=== PATIENT | female | born 1985 | race American Indian/Alaskan Native ===

== ENCOUNTER 2017-02-01 07:32 | Observation (INO) | payer SELFPAY ==
[2017-02-01 07:32] VITALS: BMI 21.5
[2017-02-01] MEDS ORDERED: Sodium Chloride 0.9% 1,000 ML IV ONE ×2 (07:47→13:15)
[2017-02-01] MEDS ORDERED: HYDROmorphone 1 mg Tab PO STA ×2 (07:48→09:21)
--- NOTE | 2017-02-01 07:51 | C.PDOC ---
History Of Present Illness 31 y/o female with hx svt and perry cell disease c/o multiple episodes of svt today; pt sts she has been able to break them through valsalva maneuvers or blowing into syringe or straw, but they keep returning approx every 15 minutes for last few hours. when in svt, pt has cp and feel sob. pt sts she is in painful sc crisis, which started yesterday, and crises often exacerbated by cold weather, with pain to back, lower joints and ribs, typical of her usual painful crises. denies fever and chills. no cough. cp she feels does not feel like acute chest syndrome. Time Seen by Provider: 02/01/17 07:35 Chief Complaint (Nursing): Palpitations Past Medical History Reviewed: Historical Data, Nursing Documentation, Vital Signs Vital Signs: Last Vital Signs Temp Pulse 94 H 02/01/17 10:17 Resp 18 02/01/17 10:17 BP 179/104 H 02/01/17 09:57 Pulse Ox 99 02/01/17 10:17 - Medical History PMH: Cardia Arrhythmia, Sickle Cell Disease (SC ) Other PMH: splenic infarct Surgical History: Cholecystectomy Family History: States: Unknown Family Hx - Social History Hx Tobacco Use: No Hx Alcohol Use: No Hx Substance Use: No - Immunization History Hx Tetanus Toxoid Vaccination: Yes Hx Influenza Vaccination: Yes Hx Pneumococcal Vaccination: Yes Review Of Systems Constitutional: Negative for: Fever, Chills Cardiovascular: Positive for: Chest Pain, Palpitations Respiratory: Positive for: Shortness of Breath, Pleuritic Pain. Negative for: Cough Gastrointestinal: Negative for: Nausea, Vomiting, Abdominal Pain Genitourinary: Negative for: Dysuria, Frequency Skin: Negative for: Rash Neurological: Negative for: Weakness, Numbness Physical Exam - Physical Exam Appears: Non-toxic, In Acute Distress Skin: Normal Color, Warm, Dry Head: Atraumatic, Normacephalic Neck: Normal ROM Chest: Symmetrical, No Deformity, No Tenderness Cardiovascular: Rhythm Regular, Other (tachycardic, ranges from low 100s to 190 , and back to low hundred's ) Respiratory: Normal Breath Sounds, No Rales, No Rhonchi, No Stridor Gastrointestinal/Abdominal: Normal Exam, Soft, No Tenderness Neurological/Psych: Oriented x3, Normal Speech, Normal Motor, Normal Sensation ED Course And Treatment - Laboratory Results Result Diagrams: 02/01/17 08:19 02/01/17 08:19 Urine POC: Negative ECG: Viewed By Me ECG Rhythm: Sinus Tachycardia ECG Interpretation: Abnormal Interpretation Of ECG: sinus tachycardia at 112, with non specific t wave abnl O2 Sat by Pulse Oximetry: 98 Pulse Ox Interpretation: Normal Progress Note: pt still having crisis pain, decreased to 8/10 from 10/10. seond dose medication ordered. Dr Bi bright. 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 [id number] Silva, will admit pt to his service. Disposition Discussed With : Tapan Silva Doctor Will See Patient In The: Hospital - Disposition Disposition: HOSPITALIZED Disposition Time: 10:42 Condition: SERIOUS - Clinical Impression Clinical Impression: Sickle cell crisis, SVT (supraventricular tachycardia)
[2017-02-01] MEDS ORDERED: Sodium Chloride 0.9% 1,000 ML ONE (07:58)
[2017-02-01 08:26] LABS: BASO # 0.1 K/uL (0.0-0.2); BASO % 0.5 % (0.0-2.0); EOS # 0.3 K/uL (0.0-0.7); EOS % 2.2 % (0.0-4.0); HEMATOCRIT 31.2 % (34.0-47.0); LYMPH # 2.1 K/uL (1.0-4.3); LYMPH % 16.4 % (20.0-40.0); MEAN CELL VOLUME 75.2 fL (81.0-99.0); MEAN CORPUSCULAR HEMOGLOBIN 23.1 pg (27.0-31.0); MEAN CORPUSCULAR HGB CONC 30.7 g/dL (33.0-37.0); MEAN PLATELET VOLUME 8.8 fL (7.2-11.7); MONO % 7.6 % (0.0-10.0); RED CELL DISTRIBUTION WIDTH 19.1 % (11.5-14.5); WHITE BLOOD COUNT 12.7 K/uL (4.8-10.8)
[2017-02-01 08:33] LABS: CHLORIDE 99 mmol/L (98-107); SODIUM 139 mmol/L (132-148)
[2017-02-01 08:34] LABS: POTASSIUM 3.6 mmol/L (3.6-5.2)
[2017-02-01 08:35] LABS: GFR AFRICAN-AMERICAN > 60
[2017-02-01 08:36] LABS: ALB/GLOB RATIO 0.9 (1.0-2.1); ALKALINE PHOSPHATASE 109 U/L (38-126); ALT/SGPT 17 U/L (9-52); AST/SGOT 34 U/L (14-36); BILIRUBIN,TOTAL 0.4 mg/dL (0.2-1.3); BLOOD UREA NITROGEN 15 mg/dL (7-17); CARBON DIOXIDE 24 mmol/L (22-30); GLUCOSE,RANDOM 86 mg/dL (65-105); TOTAL PROTEIN 8.5 g/dL (6.3-8.3)
[2017-02-01 08:46] LABS: RBC URINE 3 /hpf (0-3); URINE BACTERIA MOD (<OCC); URINE BILIRUBIN NEGATIVE (NEGATIVE); URINE BLOOD NEGATIVE (NEGATIVE); URINE COLOR Amber (YELLOW); URINE GLUCOSE (UA) NORMAL (Normal); URINE KETONE TRACE mg/dL (NEGATIVE); URINE LEUKOCYTE ESTERASE NEG Leu/uL (Negative); URINE PROTEIN 2+ mg/dL (NEGATIVE); WBC URINE 4 /hpf (0-5)
--- NOTE | 2017-02-01 09:21 | RAD ---
HISTORY: cp COMPARISON: 12/05/2016. FINDINGS: LUNGS: No focal airspace opacity. PLEURA: No significant pleural effusion identified, no pneumothorax apparent. CARDIOVASCULAR: Normal. OSSEOUS STRUCTURES: No significant abnormalities. VISUALIZED UPPER ABDOMEN: Normal. OTHER FINDINGS: None. IMPRESSION: No focal airspace opacity. No significant interval change.
[2017-02-01] MEDS ORDERED: DiphenhydrAMINE 50 mg/ml Inj IVP PRN (12:01)
[2017-02-01 13:30] VITALS: PULSE 77
[2017-02-01 13:33] VITALS: BP 166/97; RESP 16; TEMP 97.6; O2SAT 97
--- NOTE | 2017-02-01 18:04 | CP.PCM.HP ---
<Rosario Severino - Last Filed: 02/01/17 17:58> History of Present Illness - History of Present Illness History of Present Illness: CC - "I have sickle cell and I have pain all over especially in my ribs" HPI - 31 y/o female with hx svt and perry cell disease c/o multiple episodes of svt today; pt sts she has been able to break them through valsalva maneuvers or blowing into syringe or straw, but they keep returning approx every 15 minutes for last few hours. when in svt, pt has cp and feel sob. pt sts she is in painful sc crisis, which started yesterday, and crises often exacerbated by cold weather, with pain to back, lower joints and ribs, typical of her usual painful crises. denies fever and chills. no cough. cp she feels does not feel like acute chest syndrome. 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 lives alone. Famhx: 3 brothers with sickle cell trait 3 brothers with sickle cell disease, mom and dad have trait PSH: right ear surgery, cholecystectomy, portacath and s/p removal Allergies: Sulfa PMD: Dr. Little cardio: Dr. Mccracken (per past records Dr. Law), also stated Dr. Landon wolf not remeber first name Present on Admission - Present on Admission Any Indicators Present on Admission: Yes History of DVT/PE: Yes Review of Systems - Constitutional Constitutional: absent: Chills, Fever - EENT Eyes: absent: Blurred Vision, Change in Vision Ears: absent: Dizziness - Cardiovascular Cardiovascular: Palpitations. absent: Chest Pain, Chest Pain at Rest, Diaphoresis, Leg Edema, Pedal Edema, Syncope - Respiratory Respiratory: absent: Cough, Dyspnea, Dyspnea on Exertion - Gastrointestinal Gastrointestinal: absent: Abdominal Pain, Constipation, Diarrhea, Nausea, Vomiting - Genitourinary Genitourinary: absent: Change in Urinary Stream, Difficulty Urinating - Musculoskeletal Musculoskeletal: Back Pain. absent: Numbness, Tingling Additional comments: Back pain, neck pain, pain in ribs, shoulder pain, arm pain b/l - Integumentary Integumentary: absent: Bleeding Lesions, Unusual Bruising - Neurological Neurological: absent: Dizziness - Hematologic/Lymphatic Hematologic: absent: Easy Bleeding, Easy Bruising Past Patient History - Past Social History Smoking Status: Light Smoker < 10 Cigarettes Daily - CARDIAC Hx Cardia Arrhythmia: Yes - HEMATOLOGICAL/ONCOLOGICAL Hx Sickle Cell Disease: Yes (SC ) Other/Comment: Hx of DVTs - MUSCULOSKELETAL/RHEUMATOLOGICAL Hx Falls: Yes - PSYCHIATRIC Hx Substance Use: No - SURGICAL HISTORY Hx Cholecystectomy: Yes - ANESTHESIA Hx Anesthesia: Yes Meds Allergies/Adverse Reactions: Allergies Allergy/AdvReac Type Severity Reaction Status Date / Time Sulfa (Sulfonamide Allergy RASH Verified 12/12/16 00:53 Antibiotics) Physical Exam - Constitutional Appears: Non-toxic, No Acute Distress, Unkempt - Head Exam Head Exam: ATRAUMATIC, NORMAL INSPECTION - Eye Exam Eye Exam: EOMI, Normal appearance, PERRL Pupil Exam: NORMAL ACCOMODATION - ENT Exam ENT Exam: Mucous Membranes Moist - Respiratory Exam Respiratory Exam: Clear to Auscultation Bilateral, NORMAL BREATHING PATTERN. absent: Accessory Muscle Use, Chest Wall Tenderness, Respiratory Distress - Cardiovascular Exam Cardiovascular Exam: Tachycardia, REGULAR RHYTHM, +S1, +S2 - GI/Abdominal Exam GI & Abdominal Exam: Soft. absent: Distended, Firm, Guarding, Normal Bowel Sounds, Tenderness - Extremities Exam Extremities exam: Positive for: full ROM, normal inspection. Negative for: calf tenderness, joint swelling, pedal edema - Back Exam Back exam: FULL ROM, NORMAL INSPECTION. absent: CVA tenderness (L), CVA tenderness (R), paraspinal tenderness - Neurological Exam Neurological exam: Alert, CN II-XII Intact, Normal Gait, Oriented x3 - Psychiatric Exam Psychiatric exam: Agitated, Anxious, Normal Affect, Normal Mood - Skin Skin Exam: Dry, Intact, Normal Color, Warm Results - Vital Signs Recent Vital Signs: Last Vital Signs Temp 97.6 F 02/01/17 13:00 Pulse 77 02/01/17 13:00 Resp 16 02/01/17 13:00 BP 166/97 H 02/01/17 13:00 Pulse Ox 97 02/01/17 13:00 - Labs Result Diagrams: 02/01/17 08:19 02/01/17 08:19 Assessment & Plan - Assessment and Plan (Free Text) Assessment: Sickle Cell Crisis: Patient stated she has sickle cell disease. She reports having this confirmed with electrophoresis. She stated that her heme/onc used to be Dr. Navarrete but that she currently does not have one. She reports that she gets crisis 3-4 times a year which are brought about by cold weather and stress. She takes Percocet or Hydromorphone 4-5 tabs a day. She could not remember which doctor prescribes these.During the encounter she was constantly asking for pain med stating that she is normally give IM Dilaudid and Benadryl. Patient was treated with sickle cell protocol in the ED. HGB was 9.6, MVC 75.2. retic count 2. Patient recently visited [facility] complaining that she was in sickle cell crsis and a sickle cell screening test was done and was negative. Today hemoblogbinphoresis analysis was ordered and the patient refused. When I went to ask her to please do the blood work she stated that she needed more pain meds. The patient then stated if were were not going to give her the pain meds that she asked for then she would leave. She was being given Dilaudid and Benadryl IV along with Hydroxyurea and Folic Acid. Heme/Onc, Dr. Yovany Steward was consulted and stated that she was stable and would like to see electrophoresis. Patient decided to leave AMA when we would not increase her dilaudid dose after she already just recently received a dose. On exam she was sitting up on the side of the bed talking on the phoen and eating lunch. She did not appear to be tender and was in no acute distress. Patient signed out AMA after risks and benefits explained. AMA form was signed and placed in Nazanin nguyen (PAIGE) witnessed. SVT: Patient also stated she has a history of SVT. She report this being diagnosed 1 year ago and was following up with a child care supervisor. She reports a recent history of fungal valve endocarditis (Angelita) which she states she recently finished treatment for. She complains of multiple episodes of svt today; pt sts she has been able to break them through valsalva maneuvers or blowing into syringe or straw, but they keep returning approx every 15 minutes for last few hours. when in svt, pt has cp and feel sob. She stated that on admission her HR was in the mid 200s. EKG in the ED showed sinus tachycardia at 112, with non specific t wave abnl. Troponin was negative. Patient was given Amiodarone and Lopressor. Upon examination by the admitting team hr HR was NSR in the 80s. Patient was not experiencing palpitations or chest pain. Cardiology consulted, Dr. Ponce. Hx PE/DVT: Patient reports hx of PE 2 years ago. She states she takes Eliquis 20mg PO BID. Will continue Eliquis but will give 5 mg PO BID. Denies SOB or lower ext swelling or tenderness. Patient left AMA. Form signed and placed in chart. <Tapan Silva M - Last Filed: 02/04/17 16:27> Results - Vital Signs Recent Vital Signs: Last Vital Signs Temp 97.6 F 02/01/17 13:00 Pulse 77 02/01/17 13:00 Resp 16 02/01/17 13:00 BP 166/97 H 02/01/17 13:00 Pulse Ox 97 02/01/17 13:00 - Labs Result Diagrams: 02/01/17 08:19 02/01/17 08:19 Attending/Attestation - Attestation I have personally seen and examined this patient.: Yes I have fully participated in the care of the patient.: Yes I have reviewed all pertinent clinical information: Yes Notes (Text): 02/04/17 16:26 Patient was seen and examined at bedside with the resident at time of admission We will admit the patient for sickle cell crisis and also SVT Patient is normal sinus rhythm at this time We will start pain management for sickle cell crisis and also start the patient on IV fluids We will request a hematology evaluation and we will request cardiology evaluation I discussed the plan of care with the resident and 90 with the above history and physical and assessment/plan by the resident
--- NOTE | 2017-02-03 06:40 | CARD ---
APPROVED REPORT EKG Measurement Heart [id number] DC [id number] <Conclusion> Sinus tachycardia Possible Left atrial enlargement Nonspecific T wave abnormality Abnormal ECG
== END 2017-02-01 14:27 | disposition left against medical advice (07) ==
LOC: C.ER 07:32 → C.9E 10:43 → C.6T 12:08
PROVIDERS: ADMIT Internal Medicine; ATTEND Internal Medicine
DX: D57.00 Hb-SS disease with crisis, unspecified (principal); Z68.20 Body mass index [BMI] 20.0-20.9, adult; I47.1 Supraventricular tachycardia; Z87.891 Personal history of nicotine dependence
CPT/HCPCS: 71010; 80053; 81001; 83615; 84484; 84703; 85025; 85044; 93005; 99285; G0378; J1170; J7040